=== PATIENT | female | born 1960 ===

== ENCOUNTER 2017-10-20 06:32 | Inpatient (IN) | payer OTHER ==
[2017-10-20] MEDS ORDERED: SODIUM CHLORIDE 0.9% 500 ML IV STA (07:12)
--- NOTE | 2017-10-20 07:17 | ED ---
Overdose HPI - General Chief Complaint: Overdose Stated Complaint: Overdose Time Seen by Provider: 10/20/17 07:00 Source: patient, EMS, RN notes reviewed Mode of arrival: EMS Limitations: altered mental status - History of Present Illness Initial Comments: This is a 56-year-old female who apparently was found unresponsive at work. EMS was called she is found be unresponsive but was given Narcan and did respond to the Narcan. She apparently was found a bottle of morphine neck surgery she states she does not take morphine he states possibly some other residents to where she works which is where she was brought in from. She denies any suicidal thought or ideation denies knowing if she took any morphine or not. She does still feel somewhat nauseated she states. She was given Zofran by EMS. MD Complaint: other - Related Data Home Medications Medication Instructions Recorded Confirmed Albuterol Sulfate [Proair Hfa] 2 puff INHALATION Q4H PRN 10/20/17 10/20/17 Cyclobenzaprine [Flexeril] 10 mg PO TID 10/20/17 10/20/17 DULoxetine HCL [Cymbalta] 30 mg PO DAILY 10/20/17 10/20/17 Fluticasone Nasal [place] [Flonase 1 spray EA NOSTRIL DAILY 10/20/17 10/20/17 Nasal [place]] Gabapentin 800 mg PO TID 10/20/17 10/20/17 Lisinopril [Prinivil] 20 mg PO DAILY 10/20/17 10/20/17 Metoprolol/Hydrochlorothiazide 1 tab PO DAILY 10/20/17 10/20/17 [Lopressor Hct 50-25 mg Tab] Montelukast Sodium [Singulair] 10 mg PO HS 10/20/17 10/20/17 Pantoprazole Sodium [Protonix] 40 mg PO DAILY 10/20/17 10/20/17 amLODIPine [Norvasc] 10 mg PO DAILY 10/20/17 10/20/17 Allergies Allergy/AdvReac Type Severity Reaction Status Date / Time Penicillins Allergy Unknown Verified 10/20/17 11:37 Review of Systems ROS Statement: Those systems with pertinent positive or pertinent negative responses have been documented in the HPI. ROS Other: All systems not noted in ROS Statement are negative. Past Medical History Past Medical History: Hypertension Additional Past Medical History / Comment(s): neuropathy, r and l hand numbness and swelling, kidney stones History of Any Multi-Drug Resistant Organisms: None Reported Past Surgical History: Cholecystectomy, Hysterectomy Additional Past Surgical History / Comment(s): lithotripsy, part of pancrease removed. Past Psychological History: No Psychological Hx Reported Smoking Status: Never smoker Past Alcohol Use History: None Reported Past Drug Use History: None Reported General Exam - General Exam Comments Initial Comments: This a well-developed well-nourished awake alert oriented 3 female she is lethargic Limitations: altered mental status General appearance: alert, in no apparent distress Head exam: Present: atraumatic, normocephalic, normal inspection Eye exam: Present: normal appearance, PERRL, EOMI. Absent: scleral icterus, conjunctival injection, periorbital swelling ENT exam: Present: normal exam, mucous membranes moist Neck exam: Present: normal inspection. Absent: tenderness, meningismus, lymphadenopathy Respiratory exam: Present: normal lung sounds bilaterally. Absent: respiratory distress, wheezes, rales, rhonchi, stridor Cardiovascular Exam: Present: normal rhythm, tachycardia, normal heart sounds. Absent: systolic murmur, diastolic murmur, rubs, gallop, clicks GI/Abdominal exam: Present: soft, normal bowel sounds. Absent: distended, tenderness, guarding, rebound, rigid Extremities exam: Present: normal inspection, full ROM, normal capillary refill. Absent: tenderness, pedal edema, joint swelling, calf tenderness Back exam: Present: normal inspection Neurological exam: Present: alert, oriented X3, CN II-XII intact Psychiatric exam: Present: normal mood, flat affect Skin exam: Present: warm, dry, intact, normal color. Absent: rash Course Vital Signs 10/20/17 10/20/17 10/20/17 06:38 09:15 10:30 Temperature 98.4 F Pulse Rate 117 H 110 H 4 L Respiratory 12 16 18 Rate Blood Pressure 122/75 128/65 110/60 O2 Sat by Pulse 88 L 92 L 90 L Oximetry 10/20/17 11:34 Temperature Pulse Rate 104 H Respiratory 18 Rate Blood Pressure 111/64 O2 Sat by Pulse 91 L Oximetry - Reevaluation(s) Reevaluation #1: 10/20/17 13:19 The patient was evaluated by me and several occasions I did discuss the findings with the patient's daughter patient currently is not been sleeping well for at least past week she has recently moved up from down [facility]. No other major medical issues. No history of syncope by history of arrhythmias heart disease Medical Decision Making - Medical Decision Making Patient x-ray was negative for morphine as a bottle was found in the patient's proximity. I did discuss the case with the hospitalist patient will be admitted for evaluation of syncope. - Lab Data Result diagrams: 10/20/17 07:05 10/20/17 07:05 Lab Results 10/20/17 10/20/17 10/20/17 Range/Units 07:05 07:05 07:05 WBC 17.4 H (3.8-10.6) k/uL RBC 3.98 (3.80-5.40) m/uL Hgb 10.7 L (11.4-16.0) gm/dL Hct 34.3 (34.0-46.0) % MCV 86.3 (80.0-100.0) fL MCH 26.8 (25.0-35.0) pg MCHC 31.1 (31.0-37.0) g/dL RDW 15.2 (11.5-15.5) % Plt Count 351 (150-450) k/uL Neutrophils % 86 % Lymphocytes % 7 % Monocytes % 5 % Eosinophils % 2 % Basophils % 0 % Neutrophils # 15.0 H (1.3-7.7) k/uL Lymphocytes # 1.2 (1.0-4.8) k/uL Monocytes # 0.8 (0-1.0) k/uL Eosinophils # 0.3 (0-0.7) k/uL Basophils # 0.0 (0-0.2) k/uL Hypochromasia Moderate PT (9.0-12.0) sec INR (<1.2) Sodium 148 H (137-145) mmol/L Potassium 5.0 (3.5-5.1) mmol/L Chloride 105 (98-107) mmol/L Carbon Dioxide 29 (22-30) mmol/L Anion Gap 14 mmol/L BUN 24 H (7-17) mg/dL Creatinine 0.90 (0.52-1.04) mg/dL Est GFR (CKD-EPI)AfAm 83 (>60 ml/min/1.73 sqM) Est GFR (CKD-EPI)NonAf 72 (>60 ml/min/1.73 sqM) Glucose 175 H (74-99) mg/dL Calcium 9.1 (8.4-10.2) mg/dL Total Bilirubin 0.9 (0.2-1.3) mg/dL AST 48 H (14-36) U/L ALT 25 (9-52) U/L Alkaline Phosphatase 217 H (38-126) U/L Ammonia 24 (<30) umol/L Total Creatine Kinase (30-135) U/L CK-MB (CK-2) (0.0-2.4) ng/mL CK-MB (CK-2) Rel Index Troponin I (0.000-0.034) ng/mL NT-Pro-B Natriuret Pep pg/mL Total Protein 7.5 (6.3-8.2) g/dL Albumin 3.8 (3.5-5.0) g/dL Amylase 36 (30-110) U/L Lipase 19 L (23-300) U/L Urine Color Urine Appearance (Clear) Urine pH (5.0-8.0) Ur Specific [place] (1.001-1.035) Urine Protein (Negative) Urine Glucose (UA) (Negative) Urine Ketones (Negative) Urine Blood (Negative) Urine Nitrite (Negative) Urine Bilirubin (Negative) Urine Urobilinogen (<2.0) mg/dL Ur Leukocyte Esterase (Negative) Urine RBC (0-5) /hpf Urine WBC (0-5) /hpf Urine Bacteria (None) /hpf Urine Mucus (None) /hpf Salicylates <1.0 mg/dL Urine Opiates Screen (NotDetected) Ur Oxycodone Screen (NotDetected) Urine Methadone Screen (NotDetected) Ur Propoxyphene Screen (NotDetected) Acetaminophen <10.0 ug/mL Ur Barbiturates Screen (NotDetected) U Tricyclic Antidepress (NotDetected) Ur Phencyclidine Scrn (NotDetected) Ur Amphetamines Screen (NotDetected) U Methamphetamines Scrn (NotDetected) U Benzodiazepines Scrn (NotDetected) Urine Cocaine Screen (NotDetected) U Marijuana (THC) Screen (NotDetected) Serum Alcohol <10 mg/dL 10/20/17 10/20/1718 Range/Units 07:05 07:05 07:05 WBC (3.8-10.6) k/uL RBC (3.80-5.40) m/uL Hgb (11.4-16.0) gm/dL Hct (34.0-46.0) % MCV (80.0-100.0) fL MCH (25.0-35.0) pg MCHC (31.0-37.0) g/dL RDW (11.5-15.5) % Plt Count (150-450) k/uL Neutrophils % % Lymphocytes % % Monocytes % % Eosinophils % % Basophils % % Neutrophils # (1.3-7.7) k/uL Lymphocytes # (1.0-4.8) k/uL Monocytes # (0-1.0) k/uL Eosinophils # (0-0.7) k/uL Basophils # (0-0.2) k/uL Hypochromasia PT 9.8 (9.0-12.0) sec INR 1.0 (<1.2) Sodium (137-145) mmol/L Potassium (3.5-5.1) mmol/L Chloride (98-107) mmol/L Carbon Dioxide (22-30) mmol/L Anion Gap mmol/L BUN (7-17) mg/dL Creatinine (0.52-1.04) mg/dL Est GFR (CKD-EPI)AfAm (>60 ml/min/1.73 sqM) Est GFR (CKD-EPI)NonAf (>60 ml/min/1.73 sqM) Glucose (74-99) mg/dL Calcium (8.4-10.2) mg/dL Total Bilirubin (0.2-1.3) mg/dL AST (14-36) U/L ALT (9-52) U/L Alkaline Phosphatase (38-126) U/L Ammonia (<30) umol/L Total Creatine Kinase 76 (30-135) U/L CK-MB (CK-2) 1.6 (0.0-2.4) ng/mL CK-MB (CK-2) Rel Index 2.1 Troponin I <0.012 (0.000-0.034) ng/mL NT-Pro-B Natriuret Pep pg/mL Total Protein (6.3-8.2) g/dL Albumin (3.5-5.0) g/dL Amylase (30-110) U/L Lipase (23-300) U/L Urine Color Urine Appearance (Clear) Urine pH (5.0-8.0) Ur Specific [place] (1.001-1.035) Urine Protein (Negative) Urine Glucose (UA) (Negative) Urine Ketones (Negative) Urine Blood (Negative) Urine Nitrite (Negative) Urine Bilirubin (Negative) Urine Urobilinogen (<2.0) mg/dL Ur Leukocyte Esterase (Negative) Urine RBC (0-5) /hpf Urine WBC (0-5) /hpf Urine Bacteria (None) /hpf Urine Mucus (None) /hpf Salicylates mg/dL Urine Opiates Screen Not Detected (NotDetected) Ur Oxycodone Screen Not Detected (NotDetected) Urine Methadone Screen Not Detected (NotDetected) Ur Propoxyphene Screen Not Detected (NotDetected) Acetaminophen ug/mL Ur Barbiturates Screen Not Detected (NotDetected) U Tricyclic Antidepress Not Detected (NotDetected) Ur Phencyclidine Scrn Not Detected (NotDetected) Ur Amphetamines Screen Not Detected (NotDetected) U Methamphetamines Scrn Not Detected (NotDetected) U Benzodiazepines Scrn Not Detected (NotDetected) Urine Cocaine Screen Not Detected (NotDetected) U Marijuana (THC) Screen Not Detected (NotDetected) Serum Alcohol mg/dL 10/20/17 10/20/17 Range/Units 07:05 07:05 WBC (3.8-10.6) k/uL RBC (3.80-5.40) m/uL Hgb (11.4-16.0) gm/dL Hct (34.0-46.0) % MCV (80.0-100.0) fL MCH (25.0-35.0) pg MCHC (31.0-37.0) g/dL RDW (11.5-15.5) % Plt Count (150-450) k/uL Neutrophils % % Lymphocytes % % Monocytes % % Eosinophils % % Basophils % % Neutrophils # (1.3-7.7) k/uL Lymphocytes # (1.0-4.8) k/uL Monocytes # (0-1.0) k/uL Eosinophils # (0-0.7) k/uL Basophils # (0-0.2) k/uL Hypochromasia PT (9.0-12.0) sec INR (<1.2) Sodium (137-145) mmol/L Potassium (3.5-5.1) mmol/L Chloride (98-107) mmol/L Carbon Dioxide (22-30) mmol/L Anion Gap mmol/L BUN (7-17) mg/dL Creatinine (0.52-1.04) mg/dL Est GFR (CKD-EPI)AfAm (>60 ml/min/1.73 sqM) Est GFR (CKD-EPI)NonAf (>60 ml/min/1.73 sqM) Glucose (74-99) mg/dL Calcium (8.4-10.2) mg/dL Total Bilirubin (0.2-1.3) mg/dL AST (14-36) U/L ALT (9-52) U/L Alkaline Phosphatase (38-126) U/L Ammonia (<30) umol/L Total Creatine Kinase (30-135) U/L CK-MB (CK-2) (0.0-2.4) ng/mL CK-MB (CK-2) Rel Index Troponin I (0.000-0.034) ng/mL NT-Pro-B Natriuret Pep 521 pg/mL Total Protein (6.3-8.2) g/dL Albumin (3.5-5.0) g/dL Amylase (30-110) U/L Lipase (23-300) U/L Urine Color Yellow Urine Appearance Cloudy H (Clear) Urine pH 6.5 (5.0-8.0) Ur Specific [place] 1.018 (1.001-1.035) Urine Protein 1+ H (Negative) Urine Glucose (UA) Negative (Negative) Urine Ketones Trace H (Negative) Urine Blood Trace H (Negative) Urine Nitrite Negative (Negative) Urine Bilirubin Negative (Negative) Urine Urobilinogen 2.0 (<2.0) mg/dL Ur Leukocyte Esterase Small H (Negative) Urine RBC 17 H (0-5) /hpf Urine WBC 9 H (0-5) /hpf Urine Bacteria Many H (None) /hpf Urine Mucus Few H (None) /hpf Salicylates mg/dL Urine Opiates Screen (NotDetected) Ur Oxycodone Screen (NotDetected) Urine Methadone Screen (NotDetected) Ur Propoxyphene Screen (NotDetected) Acetaminophen ug/mL Ur Barbiturates Screen (NotDetected) U Tricyclic Antidepress (NotDetected) Ur Phencyclidine Scrn (NotDetected) Ur Amphetamines Screen (NotDetected) U Methamphetamines Scrn (NotDetected) U Benzodiazepines Scrn (NotDetected) Urine Cocaine Screen (NotDetected) U Marijuana (THC) Screen (NotDetected) Serum Alcohol mg/dL - EKG Data -: EKG Interpreted by Me EKG shows normal: sinus rhythm (Sinus tachycardia 103. Interval 138 QRS duration 84 QT since QTC of 370/495 possible left atrial enlargement nonspecific inferior changes.) - Radiology Data Radiology results: report reviewed (Review the imaging did review the imaging some evidence of increased pulmonary vascular markings. Cardiomegaly or inspiration), image reviewed Critical Care Time Critical Care Time: Yes Critical Care Time: 33 minutes critical care time which includes monitoring the EMS run and discussed with paramedics history physical labs x-rays reevaluation patient several occasions. Discussed with the patient's family discussed with the main physician orders and documentation of the above Disposition Clinical Impression: Syncope, Dehydration, Leukocytosis Disposition: ADMITTED IP TO THIS [facility] Condition: Stable Referrals: None,Stated [REFERRING] - 1-2 days
[2017-10-20 07:30] LABS: Basophils % (A) 0 %; Eosinophils # (A) 0.3 k/uL (0-0.7); Eosinophils % (A) 2 %; HCT 34.3 % (34.0-46.0); HGB 10.7 gm/dL (11.4-16.0); Hypochromasia Moderate; Lymphocytes # (A) 1.2 k/uL (1.0-4.8); Lymphocytes % (A) 7 %; MCH 26.8 pg (25.0-35.0); MCHC 31.1 g/dL (31.0-37.0); MCV 86.3 fL (80.0-100.0); Mean Platelet Volume 8.4; Monocytes # (A) 0.8 k/uL (0-1.0); Monocytes % (A) 5 %; Neutrophils % (A) 86 %; Platelet Count 351 k/uL (150-450); RBC 3.98 m/uL (3.80-5.40); RDW 15.2 % (11.5-15.5); WBC 17.4 k/uL (3.8-10.6)
[2017-10-20 07:43] LABS: Acetaminophen <10.0 ug/mL; Alcohol <10 mg/dL; Amylase 36 U/L (30-110); Anion Gap 14 mmol/L; Calcium 9.1 mg/dL (8.4-10.2); Carbon Dioxide 29 mmol/L (22-30); Chloride 105 mmol/L (98-107); Glucose 175 mg/dL (74-99); Lipase 19 U/L (23-300); Salicylate <1.0 mg/dL; Sodium 148 mmol/L (137-145); Total Bilirubin 0.9 mg/dL (0.2-1.3)
[2017-10-20 07:47] LABS: Blood Urea Nitrogen 24 mg/dL (7-17)
[2017-10-20 07:48] LABS: ALT 25 U/L (9-52); AST 48 U/L (14-36); Alkaline Phosphatase 217 U/L (38-126); Total Protein 7.5 g/dL (6.3-8.2)
[2017-10-20 07:49] LABS: Albumin 3.8 g/dL (3.5-5.0)
--- NOTE | 2017-10-20 07:49 | XR ---
EXAMINATION TYPE: XR chest 1V portable DATE OF EXAM: 10/20/2017 COMPARISON: NONE HISTORY: Chest pain. Syncopal episode. TECHNIQUE: Single AP portable frontal view of the chest is obtained. FINDINGS: There is low lung volumes with cardiomegaly and central vascular congestion. No large pleu ral effusion or pneumothorax is seen bilaterally. The osseous structures are intact. IMPRESSION: Correlate for CHF exacerbation as there is cardiomegaly with fairly moderate central vas cular congestion. Findings may be exaggerated by poor inspiration. Consider progress two-view chest x -ray.
[2017-10-20 07:50] LABS: Amphetamine Screen,Urine Not Detected (NotDetected); Barbiturate Screen,Urine Not Detected (NotDetected); Benzodiazepines Screen,Urine Not Detected (NotDetected); Cocaine Screen,Urine Not Detected (NotDetected); Methadone Screen, Urine Not Detected (NotDetected); Opiate Screen,Urine Not Detected (NotDetected); Oxycodone Screen, Urine Not Detected (NotDetected); Phencyclidine Screen,Urine Not Detected (NotDetected); Tricyclic Antidepressant,Urine Not Detected (NotDetected); Urn Cannabinoid Scrn Not Detected (NotDetected)
[2017-10-20 07:54] LABS: Prothrombin Time 9.8 sec (9.0-12.0)
[2017-10-20 08:16] LABS: Creatine Kinase 76 U/L (30-135)
[2017-10-20 08:30] LABS: Creatine Kinase MB 1.6 ng/mL (0.0-2.4); Troponin I <0.012 ng/mL (0.000-0.034)
--- NOTE | 2017-10-20 09:16 | CT ---
EXAMINATION TYPE: CT brain wo con DATE OF EXAM: 10/20/2017 COMPARISON: NONE HISTORY: 56-year-old female with pain, Overdose TECHNIQUE: Examination was done in axial plane without intravenous contrast. Coronal and sagittal r econstructions performed. CT DLP: 1054.2 mGycm Automated exposure control for dose reduction was used. FINDINGS: There is no evidence of acute intracranial hemorrhage, acute ischemic changes, mass, mass-effect, or extra-axial fluid collection. There is no effacement of cerebral sulci or basal subarachnoid cister ns. There is no hydrocephalus. There is no midline shift. Martinez-white matter distinction is preserv ed. Paranasal sinuses and mastoid air cells are well pneumatized. Orbits and globes are intact with prior fixation along the left lateral periorbital region as well as along the floor of the left orbit. Tin y old medial orbital wall blowout fracture also present on the left. IMPRESSION: No acute intracranial abnormality seen. Old trauma and fixation of the left orbit.
[2017-10-20 10:12] LABS: Appearance,Urine Cloudy (Clear); Bacteria,Urine Many /hpf; Bilirubin,Urine Negative (Negative); Blood,Urine Trace (Negative); Color,Urine Yellow; Glucose,Urine (UA) Negative (Negative); Ketones,Urine Trace (Negative); Leukocyte Esterase,Urine Small (Negative); Mucus,Urine Few /hpf; Nitrite,Urine Negative (Negative); PH, Urine 6.5 (5.0-8.0); Protein,Urine 1+ (Negative); RBC,Urine 17 /hpf (0-5); Specific Gravity,Urine 1.018 (1.001-1.035); WBC,Urine 9 /hpf (0-5)
[2017-10-20] MEDS ORDERED: NALOXONE 0.4 MG/ML 1 ML VIAL IV PRN (13:24)
[2017-10-20] MEDS: SODIUM CHLORIDE 0.9% 1,000 ML IV SCH ×2 (14:19→21:10)
[2017-10-20 14:25] LABS: ABG Base Excess 3.7 mmol/L; ABG HCO3 30 mmol/L (21-25); ABG PCO2 65 mmHg (35-45); ABG PH 7.28 (7.35-7.45); ABG PO2 138 mmHg (83-108); ABG TCO2 32 mmol/L (19-24)
[2017-10-20] MEDS ORDERED: ARTIFICIAL TEARS-HYPROMELLOSE DROPS 15 ML BTL BOTH EYES PRN (14:48)
[2017-10-20] MEDS ORDERED: ACETAMINOPHEN TAB 325 MG TAB PO PRN (14:48)
[2017-10-20] MEDS: NALOXONE 4 MG in SODIUM CHLORIDE 0.9% 100 ML IV SCH (15:13)
[2017-10-20] MEDS ORDERED: CYCLOBENZAPRINE 10 MG TAB PO SCH (16:00)
[2017-10-20] MEDS ORDERED: GABAPENTIN 400 MG CAP PO SCH (16:00)
[2017-10-20 16:04] LABS: Glucose,Whole Blood 118 mg/dL (75-99)
[2017-10-20] MEDS ORDERED: CALCIUM CARBONATE 500 MG CHEWABLE PO PRN (16:06)
[2017-10-20] MEDS ORDERED: hydrALAZINE HCL 20 MG/ML 1 ML VIAL IVP PRN (16:06)
[2017-10-20] MEDS ORDERED: ALBUTEROL NEBULIZED 2.5 MG/3 ML INHALATION PRN (16:06)
--- NOTE | 2017-10-20 16:12 | P.HPIM ---
History of Present Illness H&P Date: 10/20/17 Chief Complaint: Unresponsive Patient is a 56-year-old female with a past medical history of rheumatoid arthritis, hypertension, COPD/asthma, nephrolithiasis, and neuropathy who presented to the ER via EMS after being found unresponsive and passed out. She received Narcan en route via EMS with a good response. She had been found in the next to a bottle morphine. When she arrived to the ER she was awake and alert. On arrival to the emergency room her vital signs were within normal limits except for her oxygenation was 88% on room air. Chest x- ray revealed no acute process. CT of the brain showed no acute intracranial abnormality. Laboratory analysis showed an elevated white blood cell count, anemia with hemoglobin 10.7, sodium of 148, mildly elevated AST of 48. Troponin was negative. Urine was negative. Urine drug screen was negative. Salicylates and Tylenol detectable. Alcohol is undetectable. Arrangements were made for admission to the selective care unit for syncope workup. On my arrival to the emergency department the patient was unresponsive. The sternal rub she would open her eyes immediately fall back asleep. Pupils were pinpoint. She had no cough and no gag. Her daughter stated that she had been getting more lethargic. She was given 0.2 mg of Narcan and started moving but was not awake. We repeated a 0.2 mg Narcan dose. At that point she became awake alert and started responding. She then vomited and was given 5 mg of IV Reglan. I monitored her for the next 15 minutes and she already started becoming more lethargic. By about 30 minutes she already was responding to sternal rub only. At that point in time we elected to place her on a Narcan drip and admitted to the ICU. Due to patient's waxing and waning altered mentation the majority of her history was gathered from her daughter. Daughter works with her mother at a nursing home type facility where they have 2 hospice patients. The daughter found her mother laying on the kitchen floor for employees. She had a bottle of Roxanol next to her and had the syringe near a [place] cup that was empty and had pink liquid at the bottom. They know that the bottle of Roxanol was not open yesterday. They're unsure the exact amount she consumed. The daughter's knowledge her mother has not been using illicit drugs. The patient does have a history of rheumatoid arthritis and recently relocated here from near [facility] on September 17. Since that point in time she sought medical attention for increasing pain in her hands due to her rheumatoid arthritis. She was placed on an increased dose of her Neurontin and Cymbalta. They increased her Neurontin 800 mg 3 times a day and added Cymbalta. At that point in time the patient could not stop falling asleep. She therefore stopped her Cymbalta one week ago and decreased her Neurontin to twice daily. Her daughter states she is not on any biologic therapy or specific treatment for her rheumatoid arthritis. Once the patient was awake and alert and she told me that she did not do this and attempt to harm herself was having increased hand pain. She tells me that she does not do illicit drugs. She has taken morphine in the past only when prescribed by a doctor for severe pain. She denied any chest pain or shortness of breath. She denied any recent illnesses or fevers. Unfortunately she then was more lethargic again. Daughter states that she has been otherwise in her usual state of health. She's not been complaining of any chest pain, shortness of breath, nausea, vomiting, diarrhea, or fevers. I feel that the initial negative urine drug screen was likely secondary to the fact that the Roxanol had not yet been metabolized. Review of Systems Pertinent positives and negatives as per HPI, remainder of 10 point review of systems is negative as able to obtain from Past Medical History Past Medical History: Asthma, COPD, GERD/Reflux, Hypertension Additional Past Medical History / Comment(s): Neuropathy bilateral hands with bilateral hand edema at times, kidney stones, chronic low back pain-pt has followed with pain management physician in [place] and is establishing pain management in [place] (first appt 11/08/17). Rheumatoid arthritis. Nephrolithiasis. Borderline diabetes History of Any Multi-Drug Resistant Organisms: None Reported Past Surgical History: Cholecystectomy, Hysterectomy, Orthopedic Surgery Additional Past Surgical History / Comment(s): Part of pancreas had to be resected during cholecystectomy-it had , cervical surgery, lithotripsy. Left orbital repair due to fracture. 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 - Past Family History Father Family Medical History: Coronary Artery Disease (CAD) Additional Family Medical History / Comment(s): Father had a heart transplant Mother Family Medical History: Cancer Additional Family Medical History / Comment(s): Mother had breast cancer. Medications and Allergies Home Medications Medication Instructions Recorded Confirmed Type Albuterol Sulfate [Proair Hfa] 2 puff INHALATION Q4H PRN 10/20/17 10/20/17 History Cyclobenzaprine [Flexeril] 10 mg PO TID 10/20/17 10/20/17 History DULoxetine HCL [Cymbalta] 30 mg PO DAILY 10/20/17 10/20/17 History Fluticasone Nasal [place] [Flonase 1 spray EA NOSTRIL DAILY 10/20/17 10/20/17 History Nasal [place]] Gabapentin 800 mg PO TID 10/20/17 10/20/17 History Lisinopril [Prinivil] 20 mg PO DAILY 10/20/17 10/20/17 History Metoprolol/Hydrochlorothiazide 1 tab PO DAILY 10/20/17 10/20/17 History [Lopressor Hct 50-25 mg Tab] Montelukast Sodium [Singulair] 10 mg PO HS 10/20/17 10/20/17 History Pantoprazole Sodium [Protonix] 40 mg PO DAILY 10/20/17 10/20/17 History amLODIPine [Norvasc] 10 mg PO DAILY 10/20/17 10/20/17 History Allergies Allergy/AdvReac Type Severity Reaction Status Date / Time Penicillins Allergy Unknown Verified 10/20/17 11:37 Physical Exam Osteopathic Statement: *. No significant issues noted on an osteopathic structural exam other than those noted in the History and Physical/Consult. Vitals: Vital Signs Temp Pulse Resp BP Pulse Ox 10/20/17 15:23 100 16 125/72 96 10/20/17 14:45 98 16 130/71 95 10/20/17 13:30 104 H 16 100/56 94 L 10/20/17 12:30 102 H 16 108/57 94 L 10/20/17 11:34 104 H 18 111/64 91 L 10/20/17 10:30 4 L 18 110/60 90 L 04/12/18 09:15 110 H 16 128/65 92 L 10/20/17 06:38 98.4 F 117 H 12 122/75 88 L Intake and Output 10/20/17 10/20/17 10/20/17 06:59 14:59 22:59 Other: Weight 77.111 kg General: Maximal distress, appears at stated age, obesity Derm: no unusual rashes/lesions Multiple ecchymoses bilateral hands, warm, dry Head: atraumatic, normocephalic, symmetric Eyes: EOMI, no lid lag, anicteric sclera, pupils pinpoint ENT: Nose and ears atraumatic, no thrush, no pharyngeal erythema Neck: No thyromegaly, no cervical lymphadenopathy, trachea midline, supple Mouth: no lip lesion, mucus membranes moist Cardiovascular: S1S2 reg, no murmur, positive posterior tibial pulse bilateral, no edema, capillary refill less than 2 seconds Lungs: CTA bilateral, no rhonchi, no rales , no accessory muscle use Abdominal: soft, nontender to palpation, no guarding, no appreciable organomegaly, normal bowel sounds Ext: no gross muscle atrophy, muscle strength 4 out of 5 in all 4 extremities grossly, no contractures, Neuro: CN II-XI grossly intact, light touch intact all 4 extremities Psych: Patient very between lethargic, alert and oriented depending on how close she was to the Narcan dose, appropriate affect Results CBC & Chem 7: 10/20/17 07:05 10/20/17 07:05 Labs: Abnormal Lab Results - Last 24 Hours (Table) 10/20/17 10/20/17 10/20/17 Range/Units 07:05 07:05 07:05 WBC 17.4 H (3.8-10.6) k/uL Hgb 10.7 L (11.4-16.0) gm/dL Neutrophils # 15.0 H (1.3-7.7) k/uL ABG pH (7.35-7.45) ABG pCO2 (35-45) mmHg ABG pO2 (83-108) mmHg ABG HCO3 (21-25) mmol/L ABG Total CO2 (19-24) mmol/L ABG O2 Saturation (94-97) % Sodium 148 H (137-145) mmol/L BUN 24 H (7-17) mg/dL Glucose 175 H (74-99) mg/dL AST 48 H (14-36) U/L Alkaline Phosphatase 217 H (38-126) U/L Lipase 19 L (23-300) U/L Urine Appearance Cloudy H (Clear) Urine Protein 1+ H (Negative) Urine Ketones Trace H (Negative) Urine Blood Trace H (Negative) Ur Leukocyte Esterase Small H (Negative) Urine RBC 17 H (0-5) /hpf Urine WBC 9 H (0-5) /hpf Urine Bacteria Many H (None) /hpf Urine Mucus Few H (None) /hpf 10/20/17 Range/Units 14:22 WBC (3.8-10.6) k/uL Hgb (11.4-16.0) gm/dL Neutrophils # (1.3-7.7) k/uL ABG pH 7.28 L (7.35-7.45) ABG pCO2 65 H (35-45) mmHg ABG pO2 138 H (83-108) mmHg ABG HCO3 30 H (21-25) mmol/L ABG Total CO2 32 H (19-24) mmol/L ABG O2 Saturation 100.0 H (94-97) % Sodium (137-145) mmol/L BUN (7-17) mg/dL Glucose (74-99) mg/dL AST (14-36) U/L Alkaline Phosphatase (38-126) U/L Lipase (23-300) U/L Urine Appearance (Clear) Urine Protein (Negative) Urine Ketones (Negative) Urine Blood (Negative) Ur Leukocyte Esterase (Negative) Urine RBC (0-5) /hpf Urine WBC (0-5) /hpf Urine Bacteria (None) /hpf Urine Mucus (None) /hpf Comments: EKG as reviewed by myself revealed sinus tachycardia at a rate of [address]-T wave changes, normal access, and normal intervals Chest x-ray: report reviewed, image reviewed CT Scan - head: report reviewed Thrombosis Risk Factor Assmnt - DVT/VTE Prophylaxis DVT/VTE Prophylaxis: Pharmacologic Prophylaxis ordered - Choose All That Apply Any of the Below Risk Factors Present?: Yes Each Factor Represents 1 point: Abnormal pulmonary function (COPD), Age 41-60 years, Obesity (BMI >25) Other Risk Factors: No Other congenital or acquired thrombophilia - If yes, enter type in comment: No Thrombosis Risk Factor Assessment Total Risk Factor Score: 3 Thrombosis Risk Factor Assessment Level: Moderate Risk Assessment and Plan Assessment: Overdose of Roxanol -IV Narcan drip -Admit to ICU -needs to be questioned in a.m. again about intentions -Neuro checks - Antinausea medications -Only all sedating medications from home including: Flexeril, Cymbalta, Neurontin -Repeat urine drug screen Toxic encephalopathy due to above -Supportive care Aspiration event -Prophylactic clindamycin -Repeat chest x-ray in a.m. -Supplemental oxygen as needed Acute hypoxic respiratory failure -Likely secondary to lethargy versus aspiration event Leukocytosis -Suspect reactive -Repeat CBC in a.m. Acute flare of rheumatoid arthritis -Due to patient's recent vomiting will start Solu-Medrol plan on transitioning to prednisone in a.m. -Will need referral to rheumatology on discharge for further evaluation and DMARD therapy Dehydration as evidenced by hypernatremia and BUNs -Hold hydrochlorothiazide -Hold lisinopril -IV fluids -Repeat BMP in a.m. Normocytic anemia -Unknown baseline, but suspect chronic secondary to rheumatoid arthritis -Follow CBC Hypertension -Hold all current home medications -As needed hydralazine -Plan on resuming home medications in a.m. Surrogate decision-maker: Deacon brooks CODE STATUS:Full DVT prophylaxis: lovenox Discussed with: patient, daughter, ED physicis, ED nursing, Dr. Hermosillo Anticipated discharge: 2-[address]: home A total of 65 minutes was spent on the care of this complex patient more than 50 % of the time was spent in counseling and care coordination.
[2017-10-20] MEDS: IPRATROPIUM-ALBUTEROL 3 ML NEB INHALATION SCH ×3 (16:27→23:55)
[2017-10-20 16:37] LABS: Amorphous Sediment,Urine Rare /hpf; Appearance,Urine Cloudy (Clear); Bacteria,Urine Many /hpf; Bilirubin,Urine Negative (Negative); Blood,Urine Trace (Negative); Color,Urine Yellow; Glucose,Urine (UA) Negative (Negative); Hyaline Casts,Urine 11 /lpf (0-2); Ketones,Urine Trace (Negative); Leukocyte Esterase,Urine Large (Negative); Nitrite,Urine Negative (Negative); PH, Urine 6.5 (5.0-8.0); Protein,Urine 1+ (Negative); RBC,Urine 9 /hpf (0-5); Specific Gravity,Urine 1.015 (1.001-1.035); Squamous Epithelial Cell,Urine <1 /hpf (0-4); Urobilinogen,Urine <2.0 mg/dL (<2.0); WBC,Urine 73 /hpf (0-5)
[2017-10-20 16:43] LABS: Amphetamine Screen,Urine Not Detected (NotDetected); Cocaine Screen,Urine Not Detected (NotDetected); Opiate Screen,Urine Detected (NotDetected); Phencyclidine Screen,Urine Not Detected (NotDetected); Urn Cannabinoid Scrn Not Detected (NotDetected)
[2017-10-20 16:44] LABS: Barbiturate Screen,Urine Not Detected (NotDetected); Benzodiazepines Screen,Urine Not Detected (NotDetected); Methadone Screen, Urine Not Detected (NotDetected); Oxycodone Screen, Urine Not Detected (NotDetected); Tricyclic Antidepressant,Urine Not Detected (NotDetected)
[2017-10-20] MEDS: CLINDAMYCIN 600 MG in DEXTROSE 5% IN WATER 50 ML IVPB SCH ×2 (17:09)
[2017-10-20] MEDS: MONTELUKAST 10 MG TAB PO SCH (20:59)
[2017-10-20] MEDS: DOCUSATE 100 MG CAP PO SCH (21:00)
[2017-10-20] MEDS: methylPREDNISolone SOD SUCCI 125 MG/2 ML VIAL IV SCH (21:10)
[2017-10-20 22:17] LABS: Glucose,Whole Blood 107 mg/dL (75-99)
[2017-10-21] MEDS: CLINDAMYCIN 600 MG in DEXTROSE 5% IN WATER 50 ML IVPB SCH ×8 (00:10→17:52)
[2017-10-21] MEDS: NALOXONE 4 MG in SODIUM CHLORIDE 0.9% 100 ML IV SCH ×3 (00:10→13:24)
[2017-10-21 05:07] LABS: Basophils % (A) 0 %; Eosinophils % (A) 0 %; HCT 33.1 % (34.0-46.0); Hypochromasia Marked; Lymphocytes % (A) 6 %; MCH 26.8 pg (25.0-35.0); MCHC 30.4 g/dL (31.0-37.0); MCV 88.3 fL (80.0-100.0); Mean Platelet Volume 7.1; Monocytes # (A) 0.2 k/uL (0-1.0); Monocytes % (A) 1 %; Neutrophils # (A) 13.6 k/uL (1.3-7.7); Neutrophils % (A) 92 %; Platelet Count 313 k/uL (150-450); RBC 3.75 m/uL (3.80-5.40); RDW 14.8 % (11.5-15.5); WBC 14.9 k/uL (3.8-10.6)
[2017-10-21 05:17] LABS: Anion Gap 11 mmol/L; Blood Urea Nitrogen 19 mg/dL (7-17); Calcium 8.9 mg/dL (8.4-10.2); Carbon Dioxide 26 mmol/L (22-30); Chloride 109 mmol/L (98-107); Glucose 163 mg/dL (74-99); Magnesium 2.2 mg/dL (1.6-2.3); Potassium 4.7 mmol/L (3.5-5.1); Sodium 146 mmol/L (137-145)
[2017-10-21] MEDS: SODIUM CHLORIDE 0.9% 1,000 ML IV SCH ×2 (05:48→13:29)
[2017-10-21 07:14] LABS: Glucose,Whole Blood 167 mg/dL (75-99)
--- NOTE | 2017-10-21 07:19 | XR ---
EXAMINATION TYPE: XR chest 1V portable DATE OF EXAM: 10/21/2017 HISTORY: Shortness of breath. COMPARISON: 10/20/2017 TECHNIQUE: Single view of the chest is submitted. FINDINGS: Demonstrated are scattered senescent parenchymal change. There is no evidence for focal infiltrate. Resolution of perihilar and upper lobe infiltrates. The heart is stable. Hilar and mediastinal structures are within normal limits. Degenerative changes are seen of the dorsal spine. IMPRESSION: 1. Chronic changes without evidence for acute pulmonary disease.
[2017-10-21] MEDS: methylPREDNISolone SOD SUCCI 125 MG/2 ML VIAL IV SCH (08:09)
[2017-10-21] MEDS: ENOXAPARIN 40 MG/0.4 ML SYRINGE SQ SCH (08:09)
[2017-10-21] MEDS: DOCUSATE 100 MG CAP PO SCH ×2 (08:09→20:52)
[2017-10-21] MEDS: FLUTICASONE 50MCG/SPRAY NASAL 16GM EA NOSTRIL SCH (08:09)
[2017-10-21] MEDS: PANTOPRAZOLE 40 MG TABLET PO SCH (08:09)
[2017-10-21] MEDS: IPRATROPIUM-ALBUTEROL 3 ML NEB INHALATION SCH ×4 (08:14→19:38)
[2017-10-21] MEDS ORDERED: LISINOPRIL 20 MG TAB PO SCH ×2 (09:00→12:30)
[2017-10-21] MEDS ORDERED: METOPROLOL TARTRATE 50 MG TAB PO SCH (09:00)
[2017-10-21] MEDS ORDERED: DULoxetine HCL 30 MG CAPSULE.DR PO SCH (09:00)
[2017-10-21] MEDS ORDERED: HYDROCHLOROTHIAZIDE 25 MG TAB PO SCH ×2 (09:00→12:30)
[2017-10-21] MEDS: amLODIPine 10 MG TAB PO SCH (09:11)
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
--- NOTE | 2017-10-21 11:46 | P.PN ---
Subjective Progress Note Date: 10/21/17 (delayed charting patient seen at 0730) Principal diagnosis: overdose Patient is a 56-year-old female with a past medical history of rheumatoid arthritis, hypertension, COPD/asthma, nephrolithiasis, and neuropathy who presented to the ER via EMS after being found unresponsive and passed out. She received Narcan en route via EMS with a good response. She had been found in the next to a bottle morphine. When she arrived to the ER she was awake and alert. On arrival to the emergency room her vital signs were within normal limits except for her oxygenation was 88% on room air. Chest x- ray revealed no acute process. CT of the brain showed no acute intracranial abnormality. Laboratory analysis showed an elevated white blood cell count, anemia with hemoglobin 10.7, sodium of 148, mildly elevated AST of 48. Troponin was negative. Urine was negative. Urine drug screen was negative. Salicylates and Tylenol detectable. Alcohol is undetectable. Arrangements were made for admission to the selective care unit for syncope workup. She became lethargic again necessitating another dose of Narcan which were off quickly. She was then placed on a Narcan drip. It came to light that she had taken one syringe full of Roxanol. She was noted to the ICU for further monitoring and care. Her Narcan drip was able to be discontinued several hours later and she remained alert and oriented. Patient admitted to taking the morphine secondary to increased hand pain. She states she has been diagnosed with rheumatoid arthritis by her pain specialist in the past. She's never been on DMARD or biologic agent. She is only ever placed on gabapentin. She was started on Solu-Medrol secondary to inflammation and pain in her hands as well as edema. She had a rapid improvement. Patient seen and examined at bedside. No nausea, vomiting, diarrhea, constipation or dysuria. Still having pain at 8 out of 10. We discussed the fact that she is to be on medications to stop the damage from her arthritis and not pain medications to simply cover it. Patient states that she was not trying to hurt herself she was just trying to treat her pain. She absolutely denies any depression or suicidal ideation. Objective - Vital Signs Vital signs: Vital Signs Temp 98.1 F 10/21/17 08:00 Pulse 94 10/21/17 11:00 Resp 12 10/21/17 11:00 BP 138/83 10/21/17 10:00 Pulse Ox 92 L 10/21/17 11:00 Intake & Output 10/20/17 10/21/17 10/21/17 18:59 06:59 18:59 Intake Total 420 1560 310 Output Total 625 1175 600 Balance -205 385 -290 Weight 80.6 kg 82 kg Intake: IV 420 1560 310 Naloxone 4 mg In Sodium 45 60 Chloride 0.9% 100 ml @ 0. 6 MG/HR 15 mls/hr IV . Q6H40M [facility] Rx#:[id number] Sodium Chloride 0.9% 1, 375 1500 310 000 ml @ 20 mls/hr IV . Q24H [facility] Rx#:[id number] Output: Urine 625 1175 600 Other: Voiding Method Indwelling Catheter Indwelling Catheter Indwelling Catheter - Exam General: non toxic, no distress, appears at stated age, obesity Derm: warm, dry Head: atraumatic, normocephalic, symmetric Eyes: EOMI, no lid lag, anicteric sclera Mouth: no lip lesion, mucus membranes moist Cardiovascular: S1S2 reg, no murmur, positive posterior tibial pulse bilateral, Lungs: CTA bilateral, no rhonchi, no rales , no accessory muscle use Abdominal: soft, nontender to palpation, no guarding, no appreciable organomegaly Ext: no gross muscle atrophy, no edema, no contractures, swelling in bilateral hands greatly decreased, still with inflammation around joints Neuro: CN II-XI grossly intact, no focal neuro deficits Psych: Alert, oriented, appropriate affect - Labs CBC & Chem 7: 10/21/17 04:41 10/21/17 04:41 Labs: Abnormal Lab Results - Last 24 Hours (Table) 10/20/17 10/20/17 10/20/17 Range/Units 14:22 16:00 16:01 WBC (3.8-10.6) k/uL RBC (3.80-5.40) m/uL Hgb (11.4-16.0) gm/dL Hct (34.0-46.0) % MCHC (31.0-37.0) g/dL Neutrophils # (1.3-7.7) k/uL ABG pH 7.28 L (7.35-7.45) ABG pCO2 65 H (35-45) mmHg ABG pO2 138 H (83-108) mmHg ABG HCO3 30 H (21-25) mmol/L ABG Total CO2 32 H (19-24) mmol/L ABG O2 Saturation 100.0 H (94-97) % Sodium (137-145) mmol/L Chloride (98-107) mmol/L BUN (7-17) mg/dL Glucose (74-99) mg/dL POC Glucose (mg/dL) 118 H (75-99) mg/dL Urine Appearance (Clear) Urine Protein (Negative) Urine Ketones (Negative) Urine Blood (Negative) Ur Leukocyte Esterase (Negative) Urine RBC (0-5) /hpf Urine WBC (0-5) /hpf Amorphous Sediment (None) /hpf Urine Bacteria (None) /hpf Hyaline Casts (0-2) /lpf Urine Opiates Screen Detected H (NotDetected) 10/20/17 10/20/17 10/21/17 Range/Units 16:19 22:16 04:41 WBC 14.9 H (3.8-10.6) k/uL RBC 3.75 L (3.80-5.40) m/uL Hgb 10.0 L (11.4-16.0) gm/dL Hct 33.1 L (34.0-46.0) % MCHC 30.4 L (31.0-37.0) g/dL Neutrophils # 13.6 H (1.3-7.7) k/uL ABG pH (7.35-7.45) ABG pCO2 (35-45) mmHg ABG pO2 (83-108) mmHg ABG HCO3 (21-25) mmol/L ABG Total CO2 (19-24) mmol/L ABG O2 Saturation (94-97) % Sodium (137-145) mmol/L Chloride (98-107) mmol/L BUN (7-17) mg/dL Glucose (74-99) mg/dL POC Glucose (mg/dL) 107 H (75-99) mg/dL Urine Appearance Cloudy H (Clear) Urine Protein 1+ H (Negative) Urine Ketones Trace H (Negative) Urine Blood Trace H (Negative) Ur Leukocyte Esterase Large H (Negative) Urine RBC 9 H (0-5) /hpf Urine WBC 73 H (0-5) /hpf Amorphous Sediment Rare H (None) /hpf Urine Bacteria Many H (None) /hpf Hyaline Casts 11 H (0-2) /lpf Urine Opiates Screen (NotDetected) 10/21/17 10/21/17 Range/Units 04:41 07:12 WBC (3.8-10.6) k/uL RBC (3.80-5.40) m/uL Hgb (11.4-16.0) gm/dL Hct (34.0-46.0) % MCHC (31.0-37.0) g/dL Neutrophils # (1.3-7.7) k/uL ABG pH (7.35-7.45) ABG pCO2 (35-45) mmHg ABG pO2 (83-108) mmHg ABG HCO3 (21-25) mmol/L ABG Total CO2 (19-24) mmol/L ABG O2 Saturation (94-97) % Sodium 146 H (137-145) mmol/L Chloride 109 H (98-107) mmol/L BUN 19 H (7-17) mg/dL Glucose 163 H (74-99) mg/dL POC Glucose (mg/dL) 167 H (75-99) mg/dL Urine Appearance (Clear) Urine Protein (Negative) Urine Ketones (Negative) Urine Blood (Negative) Ur Leukocyte Esterase (Negative) Urine RBC (0-5) /hpf Urine WBC (0-5) /hpf Amorphous Sediment (None) /hpf Urine Bacteria (None) /hpf Hyaline Casts (0-2) /lpf Urine Opiates Screen (NotDetected) Microbiology - Last 24 Hours (Table) 10/21/17 08:25 Urine Culture - Preliminary Urine,Catheterized Assessment and Plan Assessment: Overdose of Roxanol -Denies suicidal ideation -Pain control with Ultram -Continue with neuro checks Aspiration event -Prophylactic clindamycin -Repeat chest x-ray in a.m. -Supplemental oxygen as needed Possible urinary tract infection -Await urine culture Acute hypoxic respiratory failure -Likely secondary to lethargy versus aspiration event Leukocytosis, improving -Suspect reactive -Repeat CBC in a.m. Acute flare of rheumatoid arthritis -Prednisone -Ultram for pain -Will need referral to rheumatology on discharge for further evaluation and DMARD therapy Dehydration as evidenced by hypernatremia and BUNs, improving -Hold hydrochlorothiazide -resume lisinopril -Repeat BMP in a.m. Normocytic anemia -Unknown baseline, but suspect chronic secondary to rheumatoid arthritis -Follow CBC Hypertension - Resume home metoprolol, norvasc. Hold off on HCTZ and lisinopril -Follow blood pressure Toxic encephalopathy, resolved DVT prophylaxis: lovenox Discussed with: patient, Nursing, Dr. Hermosillo Anticipated discharge: 2-[address]: home A total of 65 minutes was spent on the care of this complex patient more than 50 % of the time was spent in counseling and care coordination.
[2017-10-21] MEDS: METOPROLOL TARTRATE 50 MG TAB PO SCH (13:29)
[2017-10-21 13:50] LABS: Hemoglobin A1C 6.3 % (4.0-6.0)
[2017-10-21] MEDS ORDERED: ONDANSETRON 4 MG/2 ML VIAL IVP PRN (14:50)
[2017-10-21] MEDS: ONDANSETRON ODT 4 MG TAB PO PRN ×2 (15:00→22:29)
[2017-10-21] MEDS: GABAPENTIN 300 MG CAP PO SCH ×2 (17:09→21:23)
[2017-10-21] MEDS ORDERED: IPRATROPIUM-ALBUTEROL 3 ML NEB INHALATION PRN (19:58)
[2017-10-21] MEDS: MONTELUKAST 10 MG TAB PO SCH (20:52)
[2017-10-21] MEDS: traMADol 50 MG TAB PO PRN (21:22)
[2017-10-21 21:48] VITALS: RESP 18
[2017-10-22] MEDS: CLINDAMYCIN 600 MG in DEXTROSE 5% IN WATER 50 ML IVPB SCH ×6 (00:05→11:10)
[2017-10-22 00:09] LABS: Glucose,Whole Blood 113 mg/dL (75-99)
[2017-10-22] MEDS: SODIUM CHLORIDE 0.9% 1,000 ML IV SCH (06:04)
[2017-10-22 07:12] LABS: Glucose,Whole Blood 108 mg/dL (75-99)
[2017-10-22 08:04] LABS: Basophils % (A) 0 %; Eosinophils % (A) 0 %; HCT 31.2 % (34.0-46.0); HGB 9.4 gm/dL (11.4-16.0); Hypochromasia Marked; Lymphocytes # (A) 2.3 k/uL (1.0-4.8); Lymphocytes % (A) 20 %; MCH 26.5 pg (25.0-35.0); MCHC 30.2 g/dL (31.0-37.0); MCV 87.8 fL (80.0-100.0); Mean Platelet Volume 7.8; Monocytes # (A) 0.5 k/uL (0-1.0); Monocytes % (A) 4 %; Neutrophils # (A) 8.3 k/uL (1.3-7.7); Neutrophils % (A) 74 %; Platelet Count 281 k/uL (150-450); RBC 3.55 m/uL (3.80-5.40); RDW 15.1 % (11.5-15.5); WBC 11.2 k/uL (3.8-10.6)
[2017-10-22 08:13] LABS: Anion Gap 9 mmol/L; Blood Urea Nitrogen 22 mg/dL (7-17); Carbon Dioxide 29 mmol/L (22-30); Chloride 103 mmol/L (98-107); Glucose 97 mg/dL (74-99); Magnesium 2.2 mg/dL (1.6-2.3); Phosphorus 2.7 mg/dL (2.5-4.5); Potassium 3.8 mmol/L (3.5-5.1); Sodium 141 mmol/L (137-145)
[2017-10-22] MEDS: METOPROLOL TARTRATE 50 MG TAB PO SCH (08:46)
[2017-10-22] MEDS: FLUTICASONE 50MCG/SPRAY NASAL 16GM EA NOSTRIL SCH (08:46)
[2017-10-22] MEDS: amLODIPine 10 MG TAB PO SCH (08:46)
[2017-10-22] MEDS: DOCUSATE 100 MG CAP PO SCH (08:46)
[2017-10-22] MEDS: GABAPENTIN 300 MG CAP PO SCH ×2 (08:46→16:52)
[2017-10-22] MEDS: ENOXAPARIN 40 MG/0.4 ML SYRINGE SQ SCH (08:46)
[2017-10-22] MEDS: PANTOPRAZOLE 40 MG TABLET PO SCH (08:46)
[2017-10-22] MEDS: traMADol 50 MG TAB PO PRN ×2 (08:47→16:52)
[2017-10-22] MEDS ORDERED: predniSONE 20 MG TAB PO SCH (09:00)
[2017-10-22] MEDS ORDERED: LEVOFLOXACIN 500 MG TAB PO SCH (10:45)
--- NOTE | 2017-10-22 10:54 | P.PN ---
Progress Note - Text Progress Note Date: 10/22/17 Medically stable for discharge.
[2017-10-22 11:53] LABS: Glucose,Whole Blood 113 mg/dL (75-99)
[2017-10-22] MEDS ORDERED: BUTALB/APAP/CAFF 50-325-40MG TAB PO PRN (12:33)
--- NOTE | 2017-10-22 15:20 | P.DS ---
Providers Date of admission: 10/20/17 13:24 Expected date of discharge: 10/22/17 Attending physician: Delvin Mendoza MD Consults: 10/20/17 14:54 Consult Physician Routine Consulting Provider: Jensen Hermosillo Consult Reason/Comments: icu management Do you want consulting provider notified?: Yes 10/22/17 10:43 Consult Physician Routine Consulting Provider: Jung Cardenas Consult Reason/Comments: overdose Do you want consulting provider notified?: Yes Primary care physician: Gene Megan - Discharge Diagnosis(es) (1) Overdose Current Visit: Yes Status: Acute (2) Aspiration into airway Current Visit: Yes Status: Acute (3) UTI (urinary tract infection), bacterial Current Visit: Yes Status: Acute (4) Acute respiratory failure with hypoxia Current Visit: Yes Status: Acute (5) Other specified anemias Current Visit: Yes Status: Acute (6) HTN (hypertension) Current Visit: Yes Status: Acute (7) Dehydration Current Visit: Yes Status: Acute Hospital Course: Patient is a 56-year-old female with a past medical history of rheumatoid arthritis, hypertension, COPD/asthma, nephrolithiasis, and neuropathy who presented to the ER via EMS after being found unresponsive and passed out. She received Narcan en route via EMS with a good response. She had been found in the next to a bottle morphine. When she arrived to the ER she was awake and alert. On arrival to the emergency room her vital signs were within normal limits except for her oxygenation was 88% on room air. Chest x- ray revealed no acute process. CT of the brain showed no acute intracranial abnormality. Laboratory analysis showed an elevated white blood cell count, anemia with hemoglobin 10.7, sodium of 148, mildly elevated AST of 48. Troponin was negative. Urine was negative. Urine drug screen was negative. Salicylates and Tylenol detectable. Alcohol was undetectable. Arrangements were made for admission to the selective care unit for syncope workup. She became lethargic again necessitating another dose of Narcan which wore off quickly. She was then placed on a Narcan drip. It came to light that she had taken one syringe full of Roxanol, which was not prescribed to her. She was admitted to the ICU for further monitoring and care. Her Narcan drip was able to be discontinued several hours later and she remained alert and oriented. Patient admitted to taking the morphine secondary to increased hand pain. She states she has been diagnosed with rheumatoid arthritis by her pain specialist in the past. She's never been on DMARD or biologic agent. She is only ever placed on gabapentin. Recently her gabapentin had been increased and she was started on Cymbalta. She then became exceedingly lethargic so she decreased her frequency of Neurontin. She was started on Solu-Medrol secondary to inflammation and pain in her hands as well as edema. She had a rapid improvement in her edema and her steroids were decreased to prednisone. Her neurotin was restarted at 600 TID which seems to have drastically helped. Her urine came back with Gram negative bacteria and she was started on levaquin. She had recieved 3 days of clinda for possible aspiration PNA but CXR remained negative. It does not appear that this was an intentional overdose. The patient was trying to treat her pain. I asked her multiple times throughout her hospitalization and she denies and depression or intent for self harm. She was seeing pain management in [place], [place] and on [place] prescription index and was receiving noco through 07/28. She states that tramadol has helped with her pain in the past. She was started on ultra which controlled her pain well. Her SOB resuloved and she was determined stable for discharge. We discussed multiple times appropriate use of opiate medications. She indicates that she does not happen again. We also discussed seeing a electrician deck to confirm rheumatoid arthritis and that she could be started on DMARD's if this diagnosis is confirmed which would prevent further joint damage and help with her pain. She was intrigued to hear this and plans on following up with rheumatology. Of note her urine culture was pending at time of discharge. Patient seen and examined at bedside. No chest pain or shortness of breath. Having a slight headache. No nausea or vomiting. Feeling remorseful for the situation. Assures me that she is not having any suicidal thoughts. Vital signs reviewed and stable. General: non toxic, no distress, appears at stated age Derm: warm, dry Head: atraumatic, normocephalic, symmetric Eyes: EOMI, no lid lag, anicteric sclera Mouth: no lip lesion, mucus membranes moist Cardiovascular: S1S2 reg, no murmur, positive posterior tibial pulse bilateral, Lungs: CTA bilateral, no rhonchi, no rales , no accessory muscle use Abdominal: soft, nontender to palpation, no guarding, no appreciable organomegaly Ext: no gross muscle atrophy, no edema, no contractures Neuro: CN II-XI grossly intact, no focal neuro deficits Psych: Alert, oriented, appropriate affect A total of 35 minutes of time were spent preparing this complex discharge summary . Pertinent Studies: Chest x-ray-no acute process CC had-no acute process old fixation left orbit Patient Condition at Discharge: Stable Plan - Discharge Summary Discharge Rx Participant: Yes New Discharge Prescriptions: New Gabapentin [Neurontin] 600 mg PO TID #6 cap Levofloxacin [Levaquin] 500 mg PO Q24H #4 tab predniSONE 0 mg PO DIRECTED #16 tab traMADol HCl [Ultram] 50 mg PO QID PRN #20 tab PRN Reason: Breakthrough Pain Continue Pantoprazole Sodium [Protonix] 40 mg PO DAILY Montelukast Sodium [Singulair] 10 mg PO HS Albuterol Sulfate [Proair Hfa] 2 puff INHALATION Q4H PRN PRN Reason: Shortness Of Breath Metoprolol/Hydrochlorothiazide [Lopressor Hct 50-25 mg Tab] 1 tab PO DAILY Lisinopril [Prinivil] 20 mg PO DAILY Fluticasone Nasal Eldora [Flonase Nasal Eldora] 1 spray EA NOSTRIL DAILY amLODIPine [Norvasc] 10 mg PO DAILY Cyclobenzaprine [Flexeril] 10 mg PO TID Fluticasone Propionate [Flovent Hfa 44 mcg] 1 puff INHALATION RT-DAILY Discontinued Gabapentin 800 mg PO TID DULoxetine HCL [Cymbalta] 30 mg PO DAILY Discharge Medication List Albuterol Sulfate [Proair Hfa] 2 puff INHALATION Q4H PRN 10/20/17 [History] Cyclobenzaprine [Flexeril] 10 mg PO TID 10/20/17 [History] Fluticasone Nasal Eldora [Flonase Nasal Eldora] 1 spray EA NOSTRIL DAILY 10/20/17 [History] Fluticasone Propionate [Flovent Hfa 44 mcg] 1 puff INHALATION RT-DAILY 10/20/17 [History] Lisinopril [Prinivil] 20 mg PO DAILY 10/20/17 [History] Metoprolol/Hydrochlorothiazide [Lopressor Hct 50-25 mg Tab] 1 tab PO DAILY 10/20 [History] Montelukast Sodium [Singulair] 10 mg PO HS 10/20/17 [History] Pantoprazole Sodium [Protonix] 40 mg PO DAILY 10/20/17 [History] amLODIPine [Norvasc] 10 mg PO DAILY 10/20/17 [History] Gabapentin [Neurontin] 600 mg PO TID #6 cap 10/22/17 [Rx] Levofloxacin [Levaquin] 500 mg PO Q24H #4 tab 10/22/17 [Rx] predniSONE 0 mg PO DIRECTED #16 tab 10/22/17 [Rx] traMADol HCl [Ultram] 50 mg PO QID PRN #20 tab 10/22/17 [Rx] Follow up Appointment(s)/Referral(s): None,Stated [REFERRING] - 1-2 days Pending Studies Pending Results: Final urine culture
[2017-10-22 15:54] VITALS: BP 140/86; PULSE 71; TEMP 98.7
== END 2017-10-22 17:04 | disposition home or self-care (01) | DRG 917 ==
LOC: EC 06:32 → 6SEL 13:24 → 6ICU 15:01 → 4MS4W 10-21 11:35
PROVIDERS: ADMIT Internal Medicine; ATTEND Internal Medicine
DX: T40.2X1A Poisoning by other opioids, accidental (unintentional), initial encounter (principal); G92 Toxic encephalopathy; J96.01 Acute respiratory failure with hypoxia; J96.02 Acute respiratory failure with hypercapnia; E87.0 Hyperosmolality and hypernatremia; N39.0 Urinary tract infection, site not specified; M06.9 Rheumatoid arthritis, unspecified; R11.2 Nausea with vomiting, unspecified; E86.0 Dehydration; E66.9 Obesity, unspecified; Z68.34 Body mass index [BMI] 34.0-34.9, adult; J44.9 Chronic obstructive pulmonary disease, unspecified; R00.0 Tachycardia, unspecified; K21.9 Gastro-esophageal reflux disease without esophagitis; R73.03 Prediabetes; G62.9 Polyneuropathy, unspecified; M54.5 Low back pain; I10 Essential (primary) hypertension; D64.89 Other specified anemias; M47.9 Spondylosis, unspecified; G89.4 Chronic pain syndrome; I51.7 Cardiomegaly; Z88.0 Allergy status to penicillin; Z79.899 Other long term (current) drug therapy; Z79.51 Long term (current) use of inhaled steroids; Z87.442 Personal history of urinary calculi; Z80.3 Family history of malignant neoplasm of breast; Z51.81 Encounter for therapeutic drug level monitoring; Z82.49 Family history of ischemic heart disease and other diseases of the circulatory system; Z90.710 Acquired absence of both cervix and uterus; Z90.49 Acquired absence of other specified parts of digestive tract
CPT/HCPCS: 36415; 36600; 70450; 71045; 80048; 80053; 80306; 80320; 81001; 82075; 82140; 82150; 82550; 82553; 82805; 83036; 83520; 83690; 83735; 83880; 84100; 84484; 85025; 85610; 87077; 87086; 87186; 93005; 94760; 96361; 96374; 99291